=== PATIENT | female | born 1995 | race Caucasian/White ===

== ENCOUNTER 2017-08-03 10:56 | Observation (INO) | payer OTHER ==
[~2017-08-03] VITALS: Ht 162.6 cm; Wt 81.2 kg
[2017-08-03] MEDS ORDERED: PNV1TABL76 MT (11:21)
== END 2017-08-03 12:05 | disposition home or self-care (01) ==
LOC: L&D 10:56
PROVIDERS: ADMIT Specialist; ATTEND Specialist
DX: O36.8130 Decreased fetal movements, third trimester, not applicable or unspecified (principal); Z3A.29 29 weeks gestation of pregnancy
CPT/HCPCS: 99281; G0378